=== PATIENT | female | born 1970 | race Caucasian/White ===

== ENCOUNTER 2018-08-26 09:37 | Outpatient (RCR) | payer OTHER, BC, SELFPAY | END 2018-09-10 23:59 | LOC: NS 09:37 | DX: E66.9 Obesity, unspecified (principal); Z68.30 Body mass index [BMI] 30.0-30.9, adult | CPT/HCPCS: 97802 ==

== ENCOUNTER 2018-09-13 08:44 | Outpatient (RCR) | payer OTHER, BC, SELFPAY | END 2018-10-11 23:59 | LOC: NS 08:44 | DX: E66.9 Obesity, unspecified (principal); Z71.3 Dietary counseling and surveillance; Z68.30 Body mass index [BMI] 30.0-30.9, adult | CPT/HCPCS: 97803 ==